=== PATIENT | male | born 1975 | race Caucasian/White ===

== ENCOUNTER 2025-02-28 10:00 | Emergency (ER) | payer MEDICAID ==
[~2025-02-28] VITALS: Ht 170.2 cm; Wt 68.2 kg
[2025-02-28 10:04] VITALS: TEMP 97.5
[2025-02-28 10:42] LABS: PLATELET COUNT (AUTO) 129 K/uL (150-450); RED BLOOD CELL COUNT(AUTO) 4.84 MIL/uL (4.50-5.90); RED CELL DISTRIBUTION WIDTH 19.4 % (11.5-14.5); WHITE BLOOD COUNT (AUTO) 7.1 K/uL (4.5-11.0)
[2025-02-28] MEDS: CEPHALEXIN MONOHYDRATE 500 MG CAPSULE PO ONE (10:48)
[2025-02-28] MEDS: SULFAMETHOX/TRIMETH DS 800-160 MG/TABLET PO ONE (10:49)
[2025-02-28 10:51] LABS: CALCIUM, TOTAL 8.5 mg/dL (8.8-10.5); CREATININE 0.90 mg/dL (0.60-1.30); GLOMERULAR FILTR. RATE CALC > 60 mL/min (>60); GLUCOSE,RANDOM 129 mg/dL (70-110); SODIUM SERUM 139 mmol/L (136-145); UREA NITROGEN, BLOOD 20 mg/dL (7-18)
[2025-02-28 10:56] LABS: ASPARTATE AMINOTRANSFERASE 35.0 U/L (15-37); TOTAL PROTEIN, SERUM 7.4 g/dL (6.4-8.2)
[2025-02-28 11:04] LABS: TROPONIN I-HIGH SENSITIVITY 5 ng/L (<76)
[2025-02-28] MEDS ORDERED: CEPH-558 PO (11:13)
[2025-02-28] MEDS ORDERED: SULF-261 PO (11:13)
[2025-02-28 11:15] VITALS: BP 141/83; PULSE 77; RESP 18; O2SAT 97
[2025-02-28 14:09] LABS: RBC MORPHOLOGY COMMENT ABNORMAL RBC MORPH
[2025-03-01] MEDS ORDERED: DOXY-354 PO (14:13)
[2025-03-01] MEDS ORDERED: DIPH-1243 PO (14:13)
[2025-03-01] MEDS ORDERED: TRIA15CR49 TP (14:20)
== END 2025-02-28 11:22 | disposition home or self-care (01) ==
LOC: EMS 10:11
DX: L73.9 Follicular disorder, unspecified (principal); F41.9 Anxiety disorder, unspecified
CPT/HCPCS: 71045; 80048; 80076; 83880; 84484; 85025; 93005; 99285; 36415-L1; 36415-TC

== ENCOUNTER 2025-03-01 11:31 | Emergency (ER) | payer MEDICAID ==
[~2025-03-01] VITALS: Ht 167.6 cm; Wt 68.0 kg
[~2025-03-01 11:31] MED LIST: CEPH-558 PO; SULF-261 PO
[2025-03-01 11:51] VITALS: TEMP 97.9
[2025-03-01 12:45] VITALS: BP 124/81; PULSE 68; RESP 17; O2SAT 97
[2025-03-01] MEDS ORDERED: DOXY-354 PO (14:13)
[2025-03-01] MEDS ORDERED: DIPH-1243 PO (14:13)
[2025-03-01] MEDS: TRIAMCINOLONE 0.1% 15 GM OINTMENT TP ONE (14:15)
[2025-03-01] MEDS ORDERED: TRIA15CR49 TP (14:20)
== END 2025-03-01 14:32 | disposition home or self-care (01) ==
LOC: EMS 11:32
DX: L27.1 Localized skin eruption due to drugs and medicaments taken internally (principal); Z88.1 Allergy status to other antibiotic agents; Z88.2 Allergy status to sulfonamides; Z86.73 Personal history of transient ischemic attack (TIA), and cerebral infarction without residual deficits
CPT/HCPCS: 99283